=== PATIENT | male | born 1980 | race Hispanic/Latino ===

== ENCOUNTER 2020-04-16 22:20 | Emergency (ER) | payer OTHER ==
[2020-04-16] MEDS ORDERED: PROMETHAZINE INJ 25 MG/ML AMP ONE (22:53)
[2020-04-16] MEDS ORDERED: MEPERIDINE HCL 50 MG/ML ONE (22:53)
[2020-04-16] MEDS ORDERED: DOXYCYCLINE 100 MG CAP PO ONE (23:00)
[2020-04-16] MEDS ORDERED: HYDROCODONE/APAP 10/325 TAB ONE (23:36)
--- NOTE | 2020-04-17 00:16 | ER ---
Nurse's Notes [facility] Name: Raymond Glaser Age: 39 yrs Sex: Male : 1980 Arrival Date: 04/16/2020 Time: 22:29 Bed 23 Private MD: Diagnosis: Puncture wound without foreign body, left lower leg Presentation: 04/16 22:33 Chief complaint: EMS states: Left Lower Leg punctured by stingray. Care prior to ls4 arrival: None. Mechanism of Injury: stingray puncture. Trauma event details: Injury occurred in the [facility], Injury occurred: in a recreational area. Injury occurred: April 16, 2020. 22:33 Acuity: VICKEY 4 ls4 22:33 Acuity: VICKEY 3 ls4 22:33 Method Of Arrival: EMS: [facility] ls4 22:38 Coronavirus screen: Client denies travel out of the [place] in the last 14 days. At this ls4 time, the client does not indicate any symptoms associated with coronavirus-19. Ebola Screen: No symptoms or risks identified at this time. Initial Sepsis Screen: Does the patient meet any 2 criteria? No. Patient's initial sepsis screen is negative. Does the patient have a suspected source of infection? No. Patient's initial sepsis screen is negative. Risk Assessment: Do you want to hurt yourself or someone else? Patient reports no desire to harm self or others. Onset of symptoms was April 16, 2020 at 22:00. Triage Assessment: 22:41 General: Appears uncomfortable, obese, Behavior is fussy. Pain: Complains of pain in ls4 left calf Pain currently is 10 out of 10 on a pain scale. Neuro: No deficits noted. Cardiovascular: No deficits noted. Respiratory: No deficits noted. GI: No deficits noted. : No deficits noted. Derm: Wound noted right calf Wound is puncture, bleeding controlled. Trauma Activation: Not Applicable Physician: ED Physician; Name: ; Notified At: ; Arrived At: Physician: General Surgeon; Name: ; Notified At: ; Arrived At: Physician: Radiology; Name: ; Notified At: ; Arrived At: Physician: Respiratory; Name: ; Notified At: ; Arrived At: Physician: Lab; Name: ; Notified At: ; Arrived At: Historical: - Allergies: 22:41 No Known Allergies; ls4 - Home Meds: 22:41 None [Active]; ls4 - PMHx: 22:41 Back pain; ls4 - PSHx: 22:41 lumbar surgery; 3rd degree head; ls4 - Immunization history:: Adult Immunizations up to date. - Social history:: Smoking status: Patient denies any tobacco usage or history of. - Family history:: not pertinent. Screenin:46 Abuse screen: Denies threats or abuse. Denies injuries from another. Nutritional ls4 screening: No deficits noted. Tuberculosis screening: No symptoms or risk factors identified. Fall Risk None identified. Assessment: 22:30 General: see triage assessment . ls4 04/17 00:11 Reassessment: Patient appears in no apparent distress at this time. Patient and/or ls4 family updated on plan of care and expected duration. Pain level reassessed. Patient is alert, oriented x 3, equal unlabored respirations, skin warm/dry/pink. Soaking leg in hot water. pain is improved. 00:13 Reassessment: Patient and/or family updated on plan of care and expected duration. Pain ls4 level reassessed. Patient is alert, oriented x 3, equal unlabored respirations, skin warm/dry/pink. Soaking wound in hot water. 00:45 Reassessment: additional hot water added to the solution. mg2 Vital Signs: 04/16 22:38 BP 179 / 98; Pulse 93; Resp 17; Temp 98.4(O); Pulse Ox 99% on R/A; Weight 133.81 kg; ls4 Height 5 ft. 8 in. (172.72 cm); Pain 10/10; 04/17 01:37 Pulse 87; Resp 18; Pulse Ox 95% on R/A; mg2 02:36 BP 135 / 70; Pulse 80; Resp 18; Temp 98; Pulse Ox 100% on R/A; mg2 04/16 22:38 Body Mass Index 44.85 (133.81 kg, 172.72 cm) ls4 01:37 patient sleeping now mg2 ED Course: 04/16 22:29 Patient arrived in ED. ls4 22:33 Lauro Coles MD is Attending Physician. [facility] 22:38 Triage completed. ls4 22:43 Arm band placed on right wrist. ls4 22:46 Patient has correct armband on for positive identification. Bed in low position. Call ls4 light in reach. Side rails up X 1. Pulse ox on. NIBP on. Verbal reassurance given. 22:46 No provider procedures requiring assistance completed. Patient did not have IV access ls4 during this emergency room visit. Patient maintains SpO2 saturation greater than 95% on room air. 22:47 Shelby Mccann, KOKO is Primary Nurse. ls4 23:28 Tib Fib Left XRAY Sent. ls4 04/17 00:15 Alfa Marcano MD is Referral Physician. khadijah 00:29 Dressings: Band aid x 1 left calf. ls4 Administered Medications: 04/16 22:49 Drug: Demerol 50 mg Route: IM; Site: left deltoid; mg2 23:10 Follow up: Response: No adverse reaction; Pain is decreased ls4 22:49 Drug: Phenergan 25 mg Route: IM; Site: right deltoid; mg2 23:30 Follow up: Response: No adverse reaction ls4 23:01 Drug: Doxycycline 200 mg Route: PO; ls4 04/17 00:21 Follow up: Response: No adverse reaction ls4 04/16 23:28 Drug: [place] 10 mg-325 mg 1 tabs Route: PO; ls4 04/17 00:21 Follow up: Response: No adverse reaction; Marked relief of symptoms ls4 02:27 Drug: Neosporin Ointment 1 application Route: Topical; Site: affected area; mg2 Outcome: 00:15 Discharge ordered by . khadijah 02:36 Discharged to home with crutches. mg2 02:36 Condition: stable 02:36 Discharge instructions given to patient, Instructed on discharge instructions, follow up and referral plans. medication usage, Demonstrated understanding of instructions, follow-up care, medications, Prescriptions given X 2. 02:37 Patient left the ED. mg2 Signatures: Lauro Coles MD MD cha Gardose, Michele, RN RN mg2 Shelby Mccann, KOKO RN ls4 Corrections: (The following items were deleted from the chart) 00:30 0808 22:41 Pain: Complains of pain in right calf Pain currently is 10 out of 10 on a ls4 pain scale. ls4 04/17 00:30 0808 22:41 Derm: Wound noted right calf Wound is puncture, bleeding controlled ls4 ls4 04/17 00:31 00:28 Neosporin Ointment 1 application Topical in affected area ls4 ls4 00:31 00:28 Response: No adverse reaction ls4 ls4
--- NOTE | 2020-04-17 00:17 | EDPHYS ---
Physician Documentation [facility] Name: Raymond Glaser Age: 39 yrs Sex: Male : 1980 Arrival Date: 04/16/2020 Time: 22:29 Bed 23 Private MD: ED Physician Lauro Coles HPI: 04/16 22:45 This 39 yrs old Male presents to ER via EMS with complaints of Puncture Wound khadijah To Leg. 22:45 The patient presents with decreased range of motion, a laceration, 1 cm(s), pain. The khadijah complaints affect the left calf. Context: The problem was sustained surf. Onset: The symptoms/episode began/occurred just prior to arrival. Modifying factors: The symptoms are alleviated by nothing. the symptoms are aggravated by movement. Associated signs and symptoms: The patient has no apparent associated signs or symptoms. Treatment prior to arrival includes: no previous treatment. Severity of symptoms: At their worst the symptoms were moderate, severe, in the emergency department the symptoms are unchanged. The patient has not experienced similar symptoms in the past. Historical: - Allergies: 22:41 No Known Allergies; ls4 - Home Meds: 22:41 None [Active]; ls4 - PMHx: 22:41 Back pain; ls4 - PSHx: 22:41 lumbar surgery; 3rd degree head; ls4 - Immunization history:: Adult Immunizations up to date. - Social history:: Smoking status: Patient denies any tobacco usage or history of. - Family history:: not pertinent. ROS: 22:45 Constitutional: Negative for fever, chills, and weight loss, Eyes: Negative for injury, khadijah pain, redness, and discharge, ENT: Negative for injury, pain, and discharge, Neck: Negative for injury, pain, and swelling, Cardiovascular: Negative for chest pain, palpitations, and edema, Respiratory: Negative for shortness of breath, cough, wheezing, and pleuritic chest pain, Abdomen/GI: Negative for abdominal pain, nausea, vomiting, diarrhea, and constipation, Back: Negative for injury and pain, : Negative for injury, bleeding, discharge, and swelling, Skin: Negative for injury, rash, and discoloration, Neuro: Negative for headache, weakness, numbness, tingling, and seizure, Psych: Negative for depression, anxiety, suicide ideation, homicidal ideation, and hallucinations, Allergy/Immunology: Negative for hives, rash, and allergies, Endocrine: Negative for neck swelling, polydipsia, polyuria, polyphagia, and marked weight changes, Hematologic/Lymphatic: Negative for swollen nodes, abnormal bleeding, and unusual bruising. 22:45 MS/extremity: Positive for decreased range of motion, laceration, pain, tenderness, of the left leg. Exam: 22:45 Constitutional: This is a well developed, well nourished patient who is awake, alert, khadijah and in no acute distress. Head/Face: Normocephalic, atraumatic. Eyes: Pupils equal round and reactive to light, extra-ocular motions intact. Lids and lashes normal. Conjunctiva and sclera are non-icteric and not injected. Cornea within normal limits. Periorbital areas with no swelling, redness, or edema. ENT: Nares patent. No nasal discharge, no septal abnormalities noted. Tympanic membranes are normal and external auditory canals are clear. Oropharynx with no redness, swelling, or masses, exudates, or evidence of obstruction, uvula midline. Mucous membranes moist. Neck: Trachea midline, no thyromegaly or masses palpated, and no cervical lymphadenopathy. Supple, full range of motion without nuchal rigidity, or vertebral point tenderness. No Meningismus. Chest/axilla: Normal chest wall appearance and motion. Nontender with no deformity. No lesions are appreciated. Cardiovascular: Regular rate and rhythm with a normal S1 and S2. No gallops, murmurs, or rubs. Normal PMI, no JVD. No pulse deficits. Respiratory: Lungs have equal breath sounds bilaterally, clear to auscultation and percussion. No rales, rhonchi or wheezes noted. No increased work of breathing, no retractions or nasal flaring. Abdomen/GI: Soft, non-tender, with normal bowel sounds. No distension or tympany. No guarding or rebound. No evidence of tenderness throughout. Back: No spinal tenderness. No costovertebral tenderness. Full range of motion. Male : Normal genitalia with no discharge or lesions. Skin: Warm, dry with normal turgor. Normal color with no rashes, no lesions, and no evidence of cellulitis. Neuro: Awake and alert, GCS 15, oriented to person, place, time, and situation. Cranial nerves II-XII grossly intact. Motor strength 5/5 in all extremities. Sensory grossly intact. Cerebellar exam normal. Normal gait. Psych: Awake, alert, with orientation to person, place and time. Behavior, mood, and affect are within normal limits. 22:45 Musculoskeletal/extremity: Extremities: noted in the left calf: decreased ROM, laceration, pain, puncture. Vital Signs: 22:38 BP 179 / 98; Pulse 93; Resp 17; Temp 98.4(O); Pulse Ox 99% on R/A; Weight 133.81 kg; ls4 Height 5 ft. 8 in. (172.72 cm); Pain 10/10; 04/17 01:37 Pulse 87; Resp 18; Pulse Ox 95% on R/A; mg2 02:36 BP 135 / 70; Pulse 80; Resp 18; Temp 98; Pulse Ox 100% on R/A; mg2 04/16 22:38 Body Mass Index 44.85 (133.81 kg, 172.72 cm) ls4 01:37 patient sleeping now mg2 MDM: 04/16 22:33 Patient medically screened. khadijah 22:47 Differential diagnosis: abrasion. Data reviewed: vital signs, nurses notes, radiologic khadijah studies, plain films. Data interpreted: monitoring analyst: rate is 93 beats/min, rhythm is regular, Pulse oximetry: on room air is 99 %. Test interpretation: by ED physician or midlevel provider: plain radiologic studies. Counseling: I had a detailed discussion with the patient and/or guardian regarding: the historical points, exam findings, and any diagnostic results supporting the discharge/admit diagnosis, radiology results, the need for outpatient follow up, for definitive care, a general surgeon. 23:12 Medication response: Phenergan markedly relieved the patient's nausea. [facility] 23:15 ED course: much improved, plan explaine, pt will follow, return if worsens. [facility] 04/16 23:00 Order name: Glucose, Ancillary Testing; Complete Time: 23:25 EDMI 04/16 22:43 Order name: Tib Fib Left XRAY [facility] 04/16 22:43 Order name: Misc. Order: hot water soaks, betadine; Complete Time: 22:48 khadijah 04/16 22:43 Order name: Blood Glucose Level; Complete Time: 22:48 khadijah 04/17 00:16 Order name: Wound dressing; Complete Time: 00:28 khadijah Administered Medications: 22:49 Drug: Demerol 50 mg Route: IM; Site: left deltoid; mg2 23:10 Follow up: Response: No adverse reaction; Pain is decreased ls4 22:49 Drug: Phenergan 25 mg Route: IM; Site: right deltoid; mg2 23:30 Follow up: Response: No adverse reaction ls4 23:01 Drug: Doxycycline 200 mg Route: PO; ls4 04/17 00:21 Follow up: Response: No adverse reaction ls4 04/16 23:28 Drug: [place] 10 mg-325 mg 1 tabs Route: PO; ls4 04/17 00:21 Follow up: Response: No adverse reaction; Marked relief of symptoms ls4 02:27 Drug: Neosporin Ointment 1 application Route: Topical; Site: affected area; mg2 Disposition: 04/17/20 00:15 Discharged to Home. Impression: Puncture wound without foreign body, left lower leg. - Condition is Stable. - Discharge Instructions: Marine Life Injury, Food Poisoning and Marine Toxins, Puncture Wound, Puncture Wound, [id number], Marine Life Injury, [id number]. - Prescriptions for Tylenol- Codeine #3 300-30 mg Oral Tablet - take 2 tablets by ORAL route every 6 hours As needed; 24 tablet. Doxycycline Hyclate 100 mg Oral Tablet - take 1 tablet by ORAL route every 12 hours; 20 tablet. - Medication Reconciliation Form, Thank You Letter, Antibiotic Education, Prescription Opioid Use form. - Follow up: Private Physician; When: 2 - 3 days; Reason: Recheck today's complaints, Continuance of care, Re-evaluation by your physician. Follow up: Alfa Marcano MD; When: 2 - 3 days; Reason: Recheck today's complaints, Re-evaluation by your physician. - Problem is new. - Symptoms have improved. Signatures: Dispatcher [employer] Lauro Jackman MD MD cha Gardose, Michele, RN RN mg2 Shelby Mccann RN RN ls4 Corrections: (The following items were deleted from the chart) 02:37 00:15 04/17/2020 00:15 Discharged to Home. Impression: Puncture wound without foreign mg2 body, left lower leg. Condition is Stable. Discharge Instructions: Marine Life Injury, Food Poisoning and Marine Toxins, Puncture Wound, Puncture Wound, [id number], Marine Life Injury, [id number]. Prescriptions for Tylenol-Codeine #3 300-30 mg Oral Tablet - take 2 tablets by ORAL route every 6 hours As needed; 24 tablet, Doxycycline Hyclate 100 mg Oral Tablet - take 1 tablet by ORAL route every 12 hours; 20 tablet. and Forms are Medication Reconciliation Form, Thank You Letter, Antibiotic Education, Prescription Opioid Use. Follow up: Private Physician; When: 2 - 3 days; Reason: Recheck today's complaints, Continuance of care, Re-evaluation by your physician. Follow up: Alfa Marcano; When: 2 - 3 days; Reason: Recheck today's complaints, Re-evaluation by your physician. Problem is new. Symptoms have improved. khadijah
[2020-04-17 02:45] VITALS: BP 135/70; TEMP 98; O2SAT 100
--- NOTE | 2020-04-17 11:45 | RAD REPORT ---
EXAM DESCRIPTION: RAD - Tib Fib Left - 04/16/2020 11:09 pm CLINICAL HISTORY: PAIN COMPARISON: No comparisons FINDINGS: No fracture or dislocation seen. Numerous skin veronique are present. Radiopaque foreign bod y is seen in the soft tissues posterior to the distal shaft of the fibula.
== END 2020-04-17 02:37 | disposition home or self-care (01) ==
LOC: ER 22:20
DX: S81.832A Puncture wound without foreign body, left lower leg, initial encounter (principal); W56.82XA Struck by other nonvenomous marine animals, initial encounter; Y93.9 Activity, unspecified; Y92.832 Beach as the place of occurrence of the external cause
CPT/HCPCS: 82947; 73590; J2550; J2175; 96372; 99284